=== PATIENT | male | born 1955 | race Hispanic/Latino ===

== ENCOUNTER 2018-08-03 09:22 | Day surgery (SDC) | payer OTHER ==
[2018-07-30 15:52] VITALS: BMI 31.8
[2018-08-03] MEDS ORDERED: Maxitrol Opht Susp ONE (09:31)
[2018-08-03] MEDS ORDERED: Tetracaine 0.5% Ophth 2 ML BOTTLE ONE (09:31)
[2018-08-03] MEDS ORDERED: EPINEPHrine 1 mg/ml (1:1000) Inj ONE (09:32)
[2018-08-03] MEDS ORDERED: STERILE IRRIGATING SOLUTION 45 ML IR ONE (09:32)
[2018-08-03] MEDS ORDERED: Lidocaine 1% 20 MG/2 ML PF AMP ONE (09:32)
[2018-08-03] MEDS ORDERED: CA CL/K CL/NA CL 500 ML IR ONE (09:32)
[2018-08-03] MEDS ORDERED: Pilocarpine 1% Opht Soln ONE (09:32)
[2018-08-03] MEDS ORDERED: Povidone Iodine 5% Opht SOLUTION ONE (09:33)
[2018-08-03] MEDS ORDERED: Chondroitin/Hyaluronate Opth Syringe KIT (0.55 ml-0.5 ml) IO ONE (09:33)
[2018-08-03] MEDS ORDERED: Carbachol 0.01% IO ONE (09:33)
[2018-08-03] MEDS ORDERED: Lactated Ringer's 1,000 ML IV ONE (10:32)
[2018-08-03] MEDS ORDERED: Phenylephrine 2.5% Opht Soln OD ONE (10:52)
[2018-08-03] MEDS ORDERED: Flurbiprofen 0.03% Opht SOLN OD SCH (11:00)
[2018-08-03] MEDS ORDERED: Tropicamide 1% Opht 150 DROP/15 ML OD SCH (11:00)
[2018-08-03] MEDS ORDERED: Midazolam 2 MG/2 ML VIAL ONE (12:15)
[2018-08-03] MEDS ORDERED: Povidone Iodine Topical 10% Sol TOP ONE (12:25)
[2018-08-03 13:43] VITALS: RESP 18
[2018-08-03 14:17] VITALS: O2SAT 98
[2018-08-03 14:22] VITALS: BP 136/78; PULSE 68; TEMP 97.8
--- NOTE | 2018-08-04 12:40 | OP ---
PROCEDURE DATE: 08/03/2018 SURGEON: KAREN MESSER MD ANESTHESIOLOGIST: ANGELA MILLER MD ; GIOVANNI WONG MD ANESTHESIA: LOCAL / IV SEDATION PREOPERATIVE DIAGNOSIS: CATARACT RIGHT EYE. POSTOPERATIVE DIAGNOSIS: CATARACT RIGHT EYE. OPERATION: CLEAR CORNEAL PHACOEMULSIFICATION WITH LENS IMPLANT RIGHT EYE. PREPARATION AND PROCEDURE: After the patient was prepped and draped in the usual manner for sterile ophthalmic surgery, local IV sedation was administered; eye seals were applied to the upper and lower lid margins and an adult wire lid speculum was placed within the lids. Under microsurgical control, a two-step clear corneal incision was made into the anterior chamber. The initial incision was perpendicular to the corneal plane. The second incision with the keratome was placed at a 45-degree angle to the first incision. One cc of one percent Xylocaine MPF was instilled into the anterior chamber to achieve proper intraocular anesthesia. At this time, the Viscoelastic was injected into the anterior chamber for protection of the endothelium and for maintenance of the chamber depth. A 360-degree continuous curvilinear capsulorrhexis was performed using a pre-bent 25-gauge needle. Hydrodissection and hydrodelineation were performed using a Mendez cannula and balanced salt solution. Utilizing the tip of the Mendez cannula, the nucleus was rotated freely within the capsular bag. A standard one-handed phacoemulsification was utilized at this time for sculpting and rotating of the nucleus. The nucleus was fragmented in its entirety and aspirated without any consequence. A standard I&A was carried out for the residual cortical material. No residual material was noted within the capsular bag. The posterior capsule was noted to be clear. Additional Viscoelastic was injected into the capsular bag in preparation for lens implantation. After this has been satisfactorily achieved the intraocular lens injected through the corneal incision into the capsular bag. The intraocular lens was manipulated until it was properly oriented and the Viscoelastic was evacuated from the capsular bag and anterior chamber. The anterior chamber was reformed with balanced salt solution. The corneal incision was irrigated with BSS. The intraocular pressure was found to be within normal limits. This terminated the procedure. The speculum and lid drapes were removed. TobraDex ophthalmic suspension and Pilocarpine 1% drops one drop was applied to the eye. POSTOPERATIVE CONDITION: The patient was brought to the Post anesthesia Recovery area with stable vital signs. DKAREN MAX MD
== END 2018-08-03 14:25 | disposition home or self-care (01) ==
LOC: H.OPSURG 09:22
PROVIDERS: ATTEND Ophthalmology
DX: H25.041 Posterior subcapsular polar age-related cataract, right eye (principal); J20.9 Acute bronchitis, unspecified; E78.5 Hyperlipidemia, unspecified; I10 Essential (primary) hypertension; E66.9 Obesity, unspecified
CPT/HCPCS: 66984; J0171; J2250; J3010; J7120

== ENCOUNTER 2018-08-24 07:22 | Day surgery (SDC) | payer OTHER ==
[2018-07-30 15:52] VITALS: BMI 31.8
[2018-08-24 07:39] VITALS: RESP 18
[2018-08-24] MEDS ORDERED: Lactated Ringer's 1,000 ML IV ONE (08:04)
[2018-08-24] MEDS ORDERED: Flurbiprofen 0.03% Opht SOLN OS SCH (08:15)
[2018-08-24] MEDS ORDERED: Phenylephrine 2.5% Opht Soln OS SCH (08:15)
[2018-08-24] MEDS ORDERED: Tropicamide 1% Opht 150 DROP/15 ML OS SCH (08:15)
[2018-08-24] MEDS ORDERED: Phenylephrine 2.5% Opht Soln OS ONE (08:20)
[2018-08-24] MEDS ORDERED: Tropicamide 1% Opht 150 DROP/15 ML OS ONE (08:20)
[2018-08-24] MEDS ORDERED: Flurbiprofen 0.03% Opht SOLN OS ONE (08:20)
[2018-08-24] MEDS ORDERED: Maxitrol Opht Susp ONE (08:47)
[2018-08-24] MEDS ORDERED: Tetracaine 0.5% Ophth 2 ML BOTTLE ONE (08:47)
[2018-08-24] MEDS ORDERED: EPINEPHrine 1 mg/ml (1:1000) Inj ONE (08:47)
[2018-08-24] MEDS ORDERED: Pilocarpine 1% Opht Soln ONE (08:49)
[2018-08-24] MEDS ORDERED: Lidocaine 1% 20 MG/2 ML PF AMP ONE (08:49)
[2018-08-24] MEDS ORDERED: CA CL/K CL/NA CL 500 ML IR ONE (08:50)
[2018-08-24] MEDS ORDERED: STERILE IRRIGATING SOLUTION 45 ML IR ONE (08:50)
[2018-08-24] MEDS ORDERED: Chondroitin/Hyaluronate Opth Syringe KIT (0.55 ml-0.5 ml) IO ONE ×2 (08:51→11:17)
[2018-08-24] MEDS ORDERED: Midazolam 2 MG/2 ML VIAL ONE (10:59)
[2018-08-24] MEDS ORDERED: Propofol 10 mg/ml Inj (20 ML) ONE (10:59)
[2018-08-24] MEDS ORDERED: Pilocarpine 1% Opht Soln OS ONE (11:17)
[2018-08-24] MEDS ORDERED: Neomycin/Polymyxin B Sulfates Sol for Irrigation 1 ml Amp IR ONE (11:17)
[2018-08-24] MEDS ORDERED: BSS 15 ML SOL IR ONE (11:17)
[2018-08-24] MEDS ORDERED: EPINEPHrine 1 mg/ml (1:1000) Inj IV ONE (11:17)
[2018-08-24] MEDS ORDERED: Carbachol 0.01% IO ONE (11:17)
[2018-08-24] MEDS ORDERED: Tetracaine 0.5% Ophth 2 ML BOTTLE OU ONE (11:17)
[2018-08-24] MEDS ORDERED: Povidone Iodine 5% Opht SOLUTION OU ONE (11:17)
[2018-08-24] MEDS ORDERED: LIDOCAINE 2% PF (2ML) INJ ONE (11:17)
[2018-08-24 16:33] VITALS: BP 140/80; PULSE 63; TEMP 98; O2SAT 98
--- NOTE | 2018-08-25 07:57 | OP ---
PROCEDURE DATE: 08/24/2018 SURGEON: KAREN MESSER MD ANESTHESIOLOGIST: BLANCA VÁSQUEZ MD ANESTHESIA: LOCAL / IV SEDATION PREOPERATIVE DIAGNOSIS: CATARACT LEFT EYE. POSTOPERATIVE DIAGNOSIS: CATARACT LEFT EYE. OPERATION: CLEAR CORNEAL PHACOEMULSIFICATION WITH LENS IMPLANT LEFT EYE. PREPARATION AND PROCEDURE: After the patient was prepped and draped in the usual manner for sterile ophthalmic surgery, local IV sedation was administered; eye seals were applied to the upper and lower lid margins and an adult wire lid speculum was placed within the lids. Under microsurgical control, a two-step clear corneal incision was made into the anterior chamber. The initial incision was perpendicular to the corneal plane. The second incision with the keratome was placed at a 45-degree angle to the first incision. One cc of one percent Xylocaine MPF was instilled into the anterior chamber to achieve proper intraocular anesthesia. At this time, the Viscoelastic was injected into the anterior chamber for protection of the endothelium and for maintenance of the chamber depth. A 360-degree continuous curvilinear capsulorrhexis was performed using a pre-bent 25-gauge needle. Hydrodissection and hydrodelineation were performed using a Mendez cannula and balanced salt solution. Utilizing the tip of the Mendez cannula, the nucleus was rotated freely within the capsular bag. A standard one-handed phacoemulsification was utilized at this time for sculpting and rotating of the nucleus. The nucleus was fragmented in its entirety and aspirated without any consequence. A standard I&A was carried out for the residual cortical material. No residual material was noted within the capsular bag. The posterior capsule was noted to be clear. Additional Viscoelastic was injected into the capsular bag in preparation for lens implantation. After this has been satisfactorily achieved the intraocular lens injected through the corneal incision into the capsular bag. The intraocular lens was manipulated until it was properly oriented and the Viscoelastic was evacuated from the capsular bag and anterior chamber. The anterior chamber was reformed with balanced salt solution. The corneal incision was irrigated with BSS. The intraocular pressure was found to be within normal limits. This terminated the procedure. The speculum and lid drapes were removed. TobraDex ophthalmic suspension and Pilocarpine 1% drops one drop was applied to the eye. POSTOPERATIVE CONDITION: The patient was brought to the Post anesthesia Recovery area with stable vital signs. DKAREN MAX MD
== END 2018-08-24 13:30 | disposition home or self-care (01) ==
LOC: H.OPSURG 07:22
PROVIDERS: ATTEND Ophthalmology
DX: H25.042 Posterior subcapsular polar age-related cataract, left eye (principal); M19.90 Unspecified osteoarthritis, unspecified site; E78.5 Hyperlipidemia, unspecified; I10 Essential (primary) hypertension
CPT/HCPCS: 66984; J0171; J2250; J3010; J7120; V2632